=== PATIENT | female | born 1945 | race Caucasian/White ===

== ENCOUNTER 2016-05-14 03:13 | Emergency (ER) | payer OTHER ==
[~2016-05-14] VITALS: Ht 167.6 cm; Wt 74.0 kg
[~2016-05-14 03:13] MED LIST: ASPCH81X PO; CALC500C70 PO; LOSA1TAB PO; PRLSR20 PO
[2016-05-14 03:18] VITALS: TEMP 37.1; Ht 167.6 cm; Wt 74.0 kg
[2016-05-14] MEDS ORDERED: KETOROLAC TROMETHAMINE 30 MG/ML VIAL IV STA (04:06)
[2016-05-14 04:35] LABS: BASO % 0.5 %; BASO ABS # 0.03 K/uL (0-0.2); COMPLETE YES; EOS % 4.5 %; HEMATOCRIT 41.7 % (37-47); IG% 0.2 %; LYMPH % 18.9 %; LYMPH ABS # 1.21 K/uL (1.2-3.4); MEAN CELL VOLUME 87.2 fL (80-100); MEAN CORPUSCULAR HEMOGLOBIN 30.1 pg (25-34); MEAN CORPUSCULAR HGB CONC 34.5 g/dl (32-36); MEAN PLATELET VOLUME 10.5 fL (7.4-10.4); MONO % 6.7 %; NEUT % 69.2 %; PLATELET COUNT 211 K/uL (130-400); RED BLOOD COUNT 4.78 M/uL (4.2-5.4)
--- NOTE | 2016-05-14 04:44 | EMERGENCY ROOM VISIT NOTE ---
History Report prepared by Mook: Philomena Waters Under the Supervision of: Dr. Stacey Hoffman D.O. First contact with patient: 03:54 Chief Complaint: ABDOMINAL PAIN Stated Complaint: PAIN ON RIGHT SIDE Nursing Triage Summary: Patient reports right sided abdominal pain that started sunday and has got worse since then. History of Present Illness The patient is a 70 year old female who presents to the Emergency Room with complaints of constant throbbing right sided abdominal pain beginning 2 days ago. The patient states that she thought the pain was muscular but today it is sore to touch. She notes that she has been putting heat on it which helps a little bit and Tylenol improved her pain last night but not today. The patient reports that laying on her side makes it worse and she notes that she can feel her heart beating in it. She notes a non-productive cough. The patient denies any abdominal pain, joint pain, knee pain, ankle pain, and history of kidney stones. Source of History: patient Onset: 2 days ago Position: abdomen Quality: other (throbbing) Timing: constant Associated Symptoms: + cough, No abdominal pain Note: The patient denies any joint pain, knee pain, ankle pain, and history of kidney stones. Review of Systems See HPI for pertinent positives & negatives. A total of 10 systems reviewed and were otherwise negative. Past Medical & Surgical Medical Problems: (1) Hx of pancreatitis Family History No pertinent family history stated. Social History Smoking Status: Never Smoker Marital Status: Housing Status: lives with significant other Current/Historical Medications Scheduled Aspirin (Aspirin Chewable), 81 MG PO 3XWK Calcium/Vitamin D (Os-Tera 500 Plus D), 1 TAB PO QAM Losartan Potassium (Cozaar), 25 MG PO QAM Omeprazole (Prilosec), 20 MG PO Q2D Allergies Coded Allergies: Codeine (Unverified Adverse Reaction, Mild, STOMACH CRAMPS, 12/14/14) Physical Exam Vital Signs Date Time Temp Pulse Resp B/P Pulse Ox O2 Delivery O2 Flow Rate FiO2 05/14/16 05:50 58 18 157/69 100 Room Air 05/14/16 03:18 37.1 67 18 147/83 96 Room Air Physical Exam HEENT: Head - normocephalic and atraumatic Pupils are equal, round, and reactive to light. Extraocular eye muscles are intact, and sclera are anicteric. Nose - moist nasal mucosa without discharge. Mouth - moist buccal mucosa. Oropharynx is nonerythematous and there is no tonsillar exudate or edema noted. Neck: Supple; no JVD, nuchal rigidity, cervical lymphadenopathy, or auscultated bruits. Heart: Regular rate and rhythm. There is a normal S1 and S2 with no murmurs, clicks, or gallops appreciated. Lungs: Clear to auscultation bilaterally with no wheezes, rales, or rhonchi. Abdomen: Soft, completely nontender, nondistended, with good bowel sounds. There are no palpable pulsatile masses or hepatosplenomegaly. There is no guarding, rigidity, or rebound noted. Back: Pain to palpation over the right flank. No skin lesions noted in area of pain. Extremities: No evidence of cyanosis, clubbing, or edema. There are easily palpable peripheral pulses. Skin: warm and dry with good turgor and no rashes. Medical Decision & Procedures Laboratory Results 05/14/16 04:20 Red Blood Count 4.78, Mean Corpuscular Volume 87.2, Mean Corpuscular Hemoglobin 30.1, Mean Corpuscular Hemoglobin Concent 34.5, Mean Platelet Volume 10.5, Neutrophils (%) (Auto) 69.2, Lymphocytes (%) (Auto) 18.9, Monocytes (%) (Auto) 6.7, Eosinophils (%) (Auto) 4.5, Basophils (%) (Auto) 0.5, Neutrophils # (Auto) 4.43, Lymphocytes # (Auto) 1.21, Monocytes # (Auto) 0.43, Eosinophils # (Auto) 0.29, Basophils # (Auto) 0.03 05/14/16 04:20 Test 05/14/16 04:00 05/14/16 04:20 Urine Color YELLOW Urine Appearance CLEAR (CLEAR) Urine pH 6.5 (4.5-7.5) Urine Specific [place] 1.006 (1.000-1.030) Urine Protein NEG (NEG) Urine Glucose (UA) NEG (NEG) Urine Ketones NEG (NEG) Urine Occult Blood NEG (NEG) Urine Nitrite NEG (NEG) Urine Bilirubin NEG (NEG) Urine Urobilinogen NEG (NEG) Urine Leukocyte Esterase TRACE (NEG) Urine WBC (Auto) 1-5 /hpf (0-5) Urine RBC (Auto) 0-4 /hpf (0-4) Urine Hyaline Casts (Auto) 0 /lpf (0-5) Urine Epithelial Cells (Auto) >30 /lpf (0-5) Urine Bacteria (Auto) NEG (NEG) White Blood Count 6.40 K/uL (4.8-10.8) Red Blood Count 4.78 M/uL (4.2-5.4) Hemoglobin 14.4 g/dL (12.0-16.0) Hematocrit 41.7 % (37-47) Mean Corpuscular Volume 87.2 fL (80-100) Mean Corpuscular Hemoglobin 30.1 pg (25-34) Mean Corpuscular Hemoglobin Concent 34.5 g/dl (32-36) Platelet Count 211 K/uL (130-400) Mean Platelet Volume 10.5 fL (7.4-10.4) Neutrophils (%) (Auto) 69.2 % Lymphocytes (%) (Auto) 18.9 % Monocytes (%) (Auto) 6.7 % Eosinophils (%) (Auto) 4.5 % Basophils (%) (Auto) 0.5 % Neutrophils # (Auto) 4.43 K/uL (1.4-6.5) Lymphocytes # (Auto) 1.21 K/uL (1.2-3.4) Monocytes # (Auto) 0.43 K/uL (0.11-0.59) Eosinophils # (Auto) 0.29 K/uL (0-0.5) Basophils # (Auto) 0.03 K/uL (0-0.2) RDW Standard Deviation 42.2 fL (36.4-46.3) RDW Coefficient of Variation 13.2 % (11.5-14.5) Immature Granulocyte % (Auto) 0.2 % Immature Granulocyte # (Auto) 0.01 K/uL (0.00-0.02) Anion Gap 5.0 mmol/L (3-11) Est Creatinine Clear Calc Drug Dose 70.1 ml/min Estimated GFR () 89.1 Estimated GFR (Non- 76.9 BUN/Creatinine Ratio 15.4 (10-20) Calcium Level 9.7 mg/dl (8.5-10.1) Total Bilirubin 0.7 mg/dl (0.2-1) Direct Bilirubin 0.2 mg/dl (0-0.2) Aspartate Amino Transf (AST/SGOT) 15 U/L (15-37) Alanine Aminotransferase (ALT/SGPT) 36 U/L (12-78) Alkaline Phosphatase 121 U/L (45-117) Total Protein 7.4 gm/dl (6.4-8.2) Albumin 4.3 gm/dl (3.4-5.0) Laboratory results per my review. Medications Administered Medications (Trade) Dose Ordered Sig/[facility] Route Start Time Stop Time Status Last Admin Dose Admin Ketorolac Tromethamine (Toradol Inj) 30 mg NOW STAT IV 05/14/16 04:06 05/14/16 04:07 DC 05/14/16 04:23 30 MG Procedure 0406: Toradol Inj 30mg IV. ED Course 0214: Past medical records reviewed. The patient was evaluated in room A3. A complete history and physical exam was performed. An IV lock was initiated and labs were drawn as above. 0406: Toradol Inj 30mg IV. 0547: I reevaluated the patient. Her pain is somewhat improved and she would not like more pain medication. 0558: Upon reevaluation, the patient is doing well. I discussed findings and results with her. She verbalized agreement of the treatment plan. The patient was discharged home. Medical Decision The patient is a 70 year old female who presents to the ED with right flank pain. Differential diagnosis includes include shingles, kidney stone, pyelonephritis, flank strain. LABS: Urinalysis shows trace leukocyte esterase otherwise negative normal LFTs glucose 104 normal renal function stable H&H no leukocytosis patient has moderate discomfort over the right flank and right low back. The discomfort seems to be very superficial with palpation of the skin. We talked about the possibility of herpes zoster. No obvious hematuria or renal failure. No signs of pyelonephritis. This could represent a muscle strain or shingles. Impression Primary Impression: Right flank pain Scribe Attestation The scribe's documentation has been prepared under my direction and personally reviewed by me in its entirety. I confirm that the note above accurately reflects all work, treatment, procedures, and medical decision making performed by me. Departure Information Dispostion Home / Self-Care Referrals Satish Gamboa D.O.Int.Med. (PCP) Forms HOME CARE DOCUMENTATION FORM, IMPORTANT VISIT INFORMATION Patient Instructions Dehydration, My [employer] Additional Instructions Rest. Avoid strenuous activity Motrin - 600mg every 6 hours with food for pain Watch a rash or blisters on your right side. Return to the ER for any worsening symptoms
[2016-05-14 04:46] LABS: URINE APPEARANCE CLEAR (CLEAR); URINE BILIRUBIN NEG (NEG); URINE COLOR YELLOW; URINE EPITHELIAL CELL AUTO >30 /lpf (0-5); URINE NITRITE NEG (NEG); URINE PH 6.5 (4.5-7.5); URINE SPECIFIC GRAVITY 1.006 (1.000-1.030); UROBILINOGEN NEG (NEG)
[2016-05-14 04:53] LABS: MANUAL MICROSCOPIC REQUIRED? NO; REVIEW REQ? NO
[2016-05-14 04:54] LABS: BUN/CREATININE RATIO 15.4 (10-20); CALCIUM 9.7 mg/dl (8.5-10.1); CREATININE 0.79 mg/dl (0.60-1.20)
[2016-05-14 05:50] VITALS: BP 157/69; PULSE 58; O2SAT 100
== END 2016-05-14 05:53 | disposition home or self-care (01) ==
LOC: C.EDB 03:14 → C.EDA 05:53
DX: R10.31 Right lower quadrant pain (principal); Z79.82 Long term (current) use of aspirin; Z79.899 Other long term (current) drug therapy

== ENCOUNTER → 2016-08-10 | Outpatient (CLI) | payer OTHER ==
[2016-08-10 13:39] LABS: ALT/SGPT 34 U/L (12-78); BLOOD UREA NITROGEN 15 mg/dl (7-18); BUN/CREATININE RATIO 18.3 (10-20); CALCIUM 9.2 mg/dl (8.5-10.1); CARBON DIOXIDE 29 mmol/L (21-32); CHLORIDE 109 mmol/L (98-107); CHOLESTEROL 203 mg/dl (0-200); CREATININE 0.81 mg/dl (0.60-1.20); GLUCOSE 81 mg/dl (70-99); POTASSIUM 4.1 mmol/L (3.5-5.1); SODIUM 143 mmol/L (136-145); TRIGLYCERIDES 86 mg/dl (0-150); VERY LOW DENSITY LIPOPROT CALC 17 mg/dl
[2016-08-10 13:47] LABS: ALB/GLOB RATIO 1.2 (0.9-2); ALKALINE PHOSPHATASE 118 U/L (45-117); AST/SGOT 18 U/L (15-37); CHOLESTEROL/HDL RATIO 3.2; HDL CHOLESTEROL 63 mg/dl; LDL CHOLESTEROL CALCULATED 123 mg/dl
== END | disposition home or self-care (01) ==
LOC: C.LABBC 10:51
PROVIDERS: ATTEND Family Medicine
DX: I10 Essential (primary) hypertension (principal); Z11.59 Encounter for screening for other viral diseases; E78.5 Hyperlipidemia, unspecified

== ENCOUNTER → 2017-02-20 | Outpatient (CLI) | payer OTHER ==
--- NOTE | 2017-02-21 14:58 | MAMMOGRAPHY REPORT ---
BILATERAL DIGITAL SCREENING MAMMOGRAM TOMOSYNTHESIS WITH CAD: 02/20/2017 CLINICAL HISTORY: Routine screening. TECHNIQUE: Breast tomosynthesis in addition to standard 2D mammography was performed. Current study was also evaluated with a Computer Aided Detection (CAD) system. COMPARISON: Comparison is made to exams dated: 02/18/2016 mammogram, 02/16/2015 mammogram, 4 mammogram, 11/28/2012 mammogram, 11/28/2011 mammogram, and 11/25/2010 mammogram - [facility]. BREAST COMPOSITION: The tissue of both breasts is heterogeneously dense, which may obscure small mas ses. FINDINGS: The parenchymal pattern is unchanged. No developing mass, architectural distortion or clus ter of suspicious microcalcifications is seen in either breast. IMPRESSION: ACR BI-RADS CATEGORY 2: BENIGN There is no mammographic evidence of malignancy. A 1 year screening mammogram is recommended. The pa tient will receive written notification of the results. Approximately 10% of breast cancers are not detected with mammography. A negative mammographic report should not delay biopsy if a clinically suggestive mass is present. Sofi Marquis M.D. ay/:02/20/2017 14:59:47 [employer]: Richie MAYO(R)(M), [facility] letter sent: Normal /2 BI-RADS Code: ACR BI-RADS Category 2: Benign
== END | disposition home or self-care (01) ==
LOC: C.MAMM 09:26
PROVIDERS: ATTEND Obstetrics & Gynecology
DX: Z12.31 Encounter for screening mammogram for malignant neoplasm of breast (principal)

== ENCOUNTER → 2017-03-30 | Outpatient (CLI) | payer OTHER | END | disposition home or self-care (01) | LOC: C.LABSPEC 13:46 | PROVIDERS: ATTEND Physician Assistant | DX: R30.0 Dysuria (principal) ==

== ENCOUNTER → 2017-06-08 | Outpatient (CLI) | payer OTHER | END | disposition home or self-care (01) | LOC: C.LABSPEC 17:45 | PROVIDERS: ATTEND Obstetrics & Gynecology | DX: N76.2 Acute vulvitis (principal) ==

== ENCOUNTER → 2017-06-11 | Outpatient (CLI) | payer OTHER ==
[2017-06-11 12:59] LABS: AST/SGOT 23 U/L (15-37); BLOOD UREA NITROGEN 13 mg/dl (7-18); CALCIUM 9.2 mg/dl (8.5-10.1); CARBON DIOXIDE 32 mmol/L (21-32); CREATININE 0.84 mg/dl (0.60-1.20); GLUCOSE 91 mg/dl (70-99); POTASSIUM 4.8 mmol/L (3.5-5.1); SODIUM 141 mmol/L (136-145)
[2017-06-11 13:09] LABS: ALKALINE PHOSPHATASE 120 U/L (45-117); ALT/SGPT 38 U/L (12-78); TOTAL PROTEIN 7.3 gm/dl (6.4-8.2)
== END | disposition home or self-care (01) ==
LOC: C.LABBFT 08:23
PROVIDERS: ATTEND Internal Medicine
DX: Z00.00 Encounter for general adult medical examination without abnormal findings (principal); I10 Essential (primary) hypertension; E78.5 Hyperlipidemia, unspecified

== ENCOUNTER → 2017-09-26 | Outpatient (CLI) | payer OTHER ==
--- NOTE | 2017-09-26 13:37 | MAMMOGRAPHY REPORT ---
UNILATERAL LEFT DIGITAL DIAGNOSTIC MAMMOGRAM TOMOSYNTHESIS WITH CAD AND TARGETED LEFT ULTRASOUND: 09/26 CLINICAL HISTORY: The patient reports she had a cyst aspirated from the left breast approximately 25 years ago. She reports intermittent tenderness in the area of the prior cyst aspiration for approxima tely 2 weeks. She denies any associated palpable lump. The provider order also reports a tender area at about 2:00 on the areaola. TECHNIQUE: The study was acquired using full field digital technology and interpreted from soft copy. Breast tomosynthesis in addition to standard 2D mammography was performed. Current study was also ev aluated with a Computer Aided Detection (CAD) system. Left CC and MLO 2D and tomosynthesis images we re obtained. COMPARISON: Comparison is made to exams dated: 02/20/2017 mammogram, 02/18/2016 mammogram, 02/16/2015 mammogram, 11/28/2012 mammogram, 11/25/2010 mammogram, and 12/01/2013 mammogram - [facility]. BREAST COMPOSITION: The tissue of left breast is heterogeneously dense, which may obscure small amada s. FINDINGS: There are no suspicious masses, calcifications, or areas of architectural distortion noted in the lef t breast. There has been no significant interval change mammographically compared to prior exams. B enign-appearing left breast calcifications are stable. Asymmetry within the left medial anterior rosamaria ast is stable compared to multiple prior exams. Targeted ultrasound was performed of the area of the focal pain pointed out by the patient, in the le ft 10 to 11:00 breast, centered around 5 cm from the nipple. No suspicious masses or other suspiciou s sonographic abnormalities were noted in this region. A few small cysts were noted during the exam, including a small anechoic circumscribed 5 x 5 mm mass in the left 11:00 breast, 5 cm from the nippl e, consistent with a benign cyst. Ultrasound was also performed of the area of focal pain described by the ordering provider, in the left 2:00 subareolar breast. Benign focal duct ectasia is seen in t his region, without evidence of a mass or other suspicious sonographic abnormality. IMPRESSION: ACR BI-RADS CATEGORY 2: BENIGN, ULTRASOUND ACR BI-RADS CATEGORY 2: BENIGN No suspicious mammographic or sonographic abnormality at the site of focal pain pointed out by the pa tient and described by the ordering provider in the left breast. There is no mammographic or sonogra [facility] evidence of malignancy. Recommend clinical follow-up, and recommend routine bilateral screening mammograms which are due February 2018. The patient has been verbally notified of the results. Some breast cancers are not detected with mammography. A negative mammographic report should not aaron y biopsy if a clinically suggestive mass is present. Rosemarie Stevenson M.D. ah/:09/26/2017 12:41:14 [employer]: RT Ken(Sana)(M), [facility] letter sent: Normal 02/20 OVERALL STUDY BIRADS: 2 Benign
== END | disposition home or self-care (01) ==
LOC: C.MAMM 10:33
PROVIDERS: ATTEND Nurse Practitioner
DX: N63.20 Unspecified lump in the left breast, unspecified quadrant (principal)